=== PATIENT | female | born 1940 | race Two or more races ===

== ENCOUNTER → 2024-09-16 | Outpatient (CLI) | payer MEDICARE, SELFPAY | END | disposition home or self-care (01) | PROVIDERS: Referring Provider Dermatology; Visit Provider Dermatology | DX: Z48.817 Encounter for surgical aftercare following surgery on the skin and subcutaneous tissue (principal); L91.0 Hypertrophic scar; L57.8 Other skin changes due to chronic exposure to nonionizing radiation | CPT/HCPCS: 87070; 87077; 87186; 87205 ==